=== PATIENT | female | born 1970 | race Caucasian/White ===

== ENCOUNTER 2022-06-30 00:50 | Emergency (ER) | payer MEDICARE ==
[2022-06-30 01:20] VITALS: O2SAT 100
[2022-06-30] MEDS ORDERED: Norflex 60 MG/2 ML IM ONE (01:24)
[2022-06-30] MEDS ORDERED: Norflex 60 MG/2 ML ONE (01:28)
--- NOTE | 2022-06-30 01:49 | ERPHSYRPT ---
- History of Present Illness Time Seen by Provider: 06/30/22 01:20 Source: patient, family Exam Limitations: no limitations Patient Subjective Stated Complaint: pt states she is having a flare up of her back pain and fibromyalgia. states she is having pain in her mid to lower back with shapr pain and cramping shooting down both legs. Triage Nursing Assessment: pt alert and oriented, answers questions approp. pt ambulates back to om with slow stooped gait. pt tearful and restless, states she feels anxious and unable to be still because of pain. pt reports tenderness to rt mid back with palpation. reports some tingling in lower ext which is not new. denies urinary or bowel incont. Physician History: This is a 52-year-old white female patient has had 5 back surgeries in the past and has a nerve stimulator in place. The nerve stimulator worsens her fibromyalgia so she does not use it as it is prescribed for her to do. Patient also has fibromyalgia. Patient states that her back pain has worsened over the last 1 to 2 days. Patient lives in [place] approximately 2-[place]/2 hours away and was at her boyfriend's home approximately 1 hour away from this emergency department. Her pain worsened to the point where she felt she needed to be evaluated in the emergency department. Patient did not fall or suffer any acute trauma. Patient has had 3 different pain specialist in the past. However, according to the boyfriend, they only wanted to give her injections and those do not work for her. Patient took her gabapentin and Seroquel this past evening and patient states "it does not work". The boyfriend states that narcotics worked the best for her. Patient has no urinary symptoms. She has not had any bowel or bladder incontinence. She can ambulate. She does not have loss of sensation in her feet. Timing/Duration: day(s) (1 to 2 days), worse Method of Injury: other (No acute traumatic injury) Quality: aching, throbbing Back Pain Location: T-spine, lumbar spine Severity of Pain-Max: moderate Severity of Pain-Current: moderate Associated Symptoms: lower back pain, No urinary incontinence, No loss of bowel control, No constipation, No numbness in legs/feet, No sensory/motor loss Previous symptoms: same symptoms as today, no recent treatment Allergies/Adverse Reactions: Penicillins Allergy (Unknown, Verified 06/30/22 02:12) Hx Tetanus, Diphtheria Vaccination/Date Given: Yes Hx Influenza Vaccination/Date Given: No Hx Pneumococcal Vaccination/Date Given: No Immunizations Up to Date: Yes Travel Risk - International Travel Have you traveled outside of the country in past 3 weeks: No - Coronavirus Screening Are you exhibiting any of the following symptoms?: No Close contact with a COVID-19 positive Pt in past 14-21 Days: No - Vaccine Status Have you recieved a Covid-19 vaccination: No - Review of Systems Constitutional: No Symptoms Eyes: No Symptoms Ears, Nose, & Throat: No Symptoms Respiratory: No Symptoms Cardiac: No Symptoms Abdominal/Gastrointestinal: No Symptoms Genitourinary Symptoms: No Symptoms Musculoskeletal: Back Pain, No Fall, No Injury Skin: No Symptoms Neurological: No Symptoms Psychological: No Symptoms Endocrine: No Symptoms Hematologic/Lymphatic: No Symptoms Immunological/Allergic: No Symptoms All Other Systems: Reviewed and Negative - Past Medical History Pertinent Past Medical History: Yes Neurological History: No Pertinent History ENT History: No Pertinent History Cardiac History: Hypertension Respiratory History: No Pertinent History Endocrine Medical History: No Pertinent History Musculoskeletal History: Fibromyalgia GI Medical History: No Pertinent History - Past Surgical History Past Surgical History: Yes Gastrointestinal: Appendectomy, Cholecystectomy, Hernia Repair Female Surgical History: Hysterectomy Other Surgical History: 5 back surgeries, spinal cord stimulator, gastric sleeve surgery - Social History Smoking Status: Never smoker Exposure to second hand smoke: No Drug Use: none Patient Lives Alone: No - Nursing Vital Signs Nursing Vital Signs: Initial Vital Signs Temperature 98.8 F 06/30/22 01:00 Pulse Rate 112 H 06/30/22 01:00 Respiratory Rate 18 06/30/22 01:00 Blood Pressure 157/117 06/30/22 01:00 O2 Sat by Pulse Oximetry 100 06/30/22 01:00 Pain Scale Pain Intensity [Lower Back] 10 Pain Intensity 10 - Physical Exam General Appearance: mild distress, alert, anxiety Eye Exam: PERRL/EOMI, eyes nml inspection Ears, Nose, Throat Exam: normal ENT inspection, moist mucous membranes Neck Exam: normal inspection, non-tender, supple, full range of motion Respiratory Exam: normal breath sounds, lungs clear, airway intact, No chest tenderness, No respiratory distress Gastrointestinal Exam: No tenderness Pelvic Exam: not done Rectal Exam: not done Back Exam: normal inspection, vertebral tenderness (Thoracic and lumbar level), decreased range of motion, muscle spasm, No CVA tenderness Extremity Exam: normal inspection, normal range of motion, pelvis stable Skin Exam: normal color, warm, dry Lymphatic Exam: No adenopathy SpO2 Interpretation: normal SpO2: 100 O2 Delivery: Room Air - Course Nursing assessment & vital signs reviewed: Yes Ordered Tests: Active Orders 24 hr Category Date Time Status LUMBAR LIMITED (2 OR 3 VIEWS) Stat Exams 06/30/22 01:22 Completed THORACIC SPINE (AP,LAT,SWIMM) Stat Exams 06/30/22 01:22 Completed Medication Summary Discontinued Medications Generic Name Dose Route Start Last Admin Trade Name Freq PRN Reason Stop Dose Admin Methylprednisolone Sodium 0 mg 06/30/22 02:12 06/30/22 02:31 Succinate 125 mg/ Sterile IM 06/30/22 02:13 Not Given Water 2 ml STAT ONE Methylprednisolone Sodium 0 mg 06/30/22 02:32 06/30/22 02:37 Succinate 120 mg/ Sterile IM 06/30/22 02:33 120 mg Water 1 ml STAT STA Administration Methylprednisolone Sodium Succinate Confirm 06/30/22 02:35 Methylprednisolone Sod Suc 40m 40 Mg/Ml Vial Administered 06/30/22 02:36 Dose 40 mg .ROUTE .STK-MED ONE Methylprednisolone Sodium Succinate Confirm 06/30/22 02:35 Methylprednisolone Sod Suc 40m 40 Mg/Ml Vial Administered 06/30/22 02:36 Dose 40 mg .ROUTE .STK-MED ONE Methylprednisolone Sodium Succinate Confirm 06/30/22 02:36 Methylprednisolone Sod Suc 40m 40 Mg/Ml Vial Administered 06/30/22 02:37 Dose 40 mg .ROUTE .STK-MED ONE Orphenadrine Citrate 60 mg 06/30/22 01:24 06/30/22 01:30 Orphenadrine Citrate 60 Mg/2 Ml Vial IM 06/30/22 01:25 60 mg STAT ONE Administration Orphenadrine Citrate Confirm 06/30/22 01:28 Orphenadrine Citrate 60 Mg/2 Ml Vial Administered 06/30/22 01:29 Dose 60 mg .ROUTE .STK-MED ONE Oxycodone/Acetaminophen 1 tab 06/30/22 02:13 06/30/22 02:37 Oxycodone Hcl/Apap 5 Mg/325 Mg Tablet PO 06/30/22 02:14 1 tab STAT STA Administration Oxycodone/Acetaminophen Confirm 06/30/22 02:28 Oxycodone Hcl/Apap 5 Mg/325 Mg Tablet Administered 06/30/22 02:29 Dose 1 tab .ROUTE .STK-MED ONE Sterile Water Confirm 06/30/22 02:28 Water For Injection,Sterile 10 Ml Vial Administered 06/30/22 02:29 Dose 10 ml IJ .STK-MED ONE - Progress Progress: improved, pain not gone completely Progress Note: 06/30/22 01:50 I was called at 1:20 AM this morning after the patient triage. I ordered Norf jory 60 mg IM and thoracic and lumbar spine x-rays. At 0135 I went to evaluate the patient and she was already done an x-ray. I am awaiting her return. 06/30/22 03:04 The x-rays of the thoracic spine was read by the radiologist and I have reviewed the impression. The patient has thoracic spondylosis. There is a dorsal spinal cord stimulator in situ. There is no evidence of acute fracture or subluxation. The x-rays of the lumbar spine show lumbar spondylosis with no evidence of any acute fracture or subluxation. This patient has medical issue of moderate complexity. She has chronic low back pain and there is an acute exacerbation of it. She did not suffer any trauma. The work-up performed was based on the patient's past medical history, medication list review, drug allergy list review, history present illness and physical examination findings. Patient did not suffer any acute traumatic injury. She will require outpatient treatment of her back pain. We will send a prescription remotely to her pharmacy for steroids and Norflex. We will send her home with 2 Percocet 5/325. Counseled pt/family regarding: diagnosis, need for follow-up, rad results Medical Desision Making - Independent Historian Additional History obtained from: Relative/friend (Boyfriend) - Diagnostic Testing Radiological Interpretation: Reviewed by me, Teleradiologist Report - Risk of complications The pt has a mod risk of morbidity or mortality based on: Need for prescription drug management - Departure Departure Disposition: Home Clinical Impression: Acute exacerbation of chronic low back pain, Thoracic spondylosis, Lumbar spondylosis Condition: Stable Critical Care Time: No Referrals: DOCTOR,NO FAMILY [Primary Care Provider] - Follow up/PCP as directed Additional Instructions: Take your medication as prescribed. Follow-up with your prescribing physician, back specialist and pain specialist on 07/02/2022 for further evaluation management. Do not take your gabapentin and Seroquel within 3 to 4 hours of your Norflex muscle relaxant. Prescriptions: Prednisone 10 mg [Deltasone 10 mg] 10 mg PO TID #12 tablet Orphenadrine Citrate 100 mg [Norflex 100 MG Tablet] 100 mg PO BID #10 tab
[2022-06-30] MEDS ORDERED: solu-MEDROL 125 MG, Sterile H2O 10 ml 2 ML IM ONE ×2 (02:12)
[2022-06-30] MEDS ORDERED: PERCOCET TABLET 5/325MG PO STA ×2 (02:13→03:10)
[2022-06-30] MEDS ORDERED: Sterile H2O 10 ml IJ ONE (02:28)
[2022-06-30] MEDS ORDERED: PERCOCET TABLET 5/325MG ONE ×2 (02:28→03:27)
[2022-06-30] MEDS ORDERED: solu-MEDROL 120 MG, Sterile H2O 10 ml 1 ML IM STA ×2 (02:32)
[2022-06-30] MEDS ORDERED: solu-MEDROL ONE ×3 (02:35→02:36)
[2022-06-30 02:52] VITALS: BP 149/105; PULSE 99
--- NOTE | 2022-06-30 02:54 | XRAY ---
CLINICAL HISTORY:back pain COMPARISON:None; TECHNIQUES:X-ray lumbar spine standing AP, oblique and lateral views; FINDINGS: Post spinal fixation status at L1 and L2 levels with the suggestion of L1-L2 vertebral fusion. The spinal cord stimulator seen extending in dorsal spinal canal. Lumbar lordotic curvature is maintained. Multilevel marginal osteophytes, facetal arthropathy, and endplate sclerosis were noted. The rest of visualized intervertebral disc heights are normal. Bilateral sacroiliac joints are maintained. Normal paravertebral soft tissue densities. The bowel gas pattern is normal. IMPRESSION: 1-Post spinal fixation status at L1 and L2 levels with the suggestion of L1-L2 vertebral fusion. Spinal cord stimulator extending in dorsal spinal canal. 2-Lumbar spondylosis. DISCLAIMER: A subtle bone abnormality or fracture may not be readily apparent on x-rays, thus clinical correlation and further imaging including follow up CT, MRI, or follow up x-rays are advised as needed. Electronically Signed by: Stacey Delarosa MD. (06/30/2022 01:45:49 BRANCH MANAGER TRAINEE)
--- NOTE | 2022-06-30 02:56 | XRAY ---
CLINICAL HISTORY:back pain COMPARISON:None; TECHNIQUES:X-rays of the thoracic spine (AP, lateral, and Swimmer's projections) were performed; FINDINGS: A dorsal spinal cord stimulator was noted in situ. Diffuse osteopenia noted. Multilevel osteophytes were noted. Mildly reduced intervertebral disc height is seen at a few levels in the mid-dorsal spine with endplate sclerosis. Normal kyphotic curvature of the thoracic spine. No fracture is seen. The vertebral alignment is maintained with no spondylolisthesis visualized. There is no abnormal mass. The paraspinal area and soft tissue appear within normal limits. IMPRESSION: 1-Thoracic spondylosis. 2-Dorsal spinal cord stimulator in situ. Bone Disclaimer: A subtle bone abnormality or fracture may not be readily apparent on x-rays, thus clinical correlation and further imaging including follow-up CT, MRI or follow-up x-rays are advised as needed. Electronically Signed by: Stacey Delarosa MD. 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
== END 2022-06-30 04:17 | disposition home or self-care (01) ==
LOC: ED 00:50
DX: G89.29 Other chronic pain (principal); M54.50 Low back pain, unspecified; M47.816 Spondylosis without myelopathy or radiculopathy, lumbar region; M47.814 Spondylosis without myelopathy or radiculopathy, thoracic region; M79.7 Fibromyalgia; I10 Essential (primary) hypertension; Z79.899 Other long term (current) drug therapy; Z28.310 Unvaccinated for COVID-19
CPT/HCPCS: 72072; 72100; 96372; 99283; J2360; J2920; A9270-GY